=== PATIENT | male | born 1990 | race African-American/Black ===

== ENCOUNTER 2018-05-23 17:23 | Emergency (ER) | payer BC ==
[~2018-05-23] VITALS: Wt 96.0 kg
[2018-05-23 17:29] VITALS: BP 167/83
[2018-05-23] MEDS ORDERED: predniSONE 20 MG TAB PO STA (18:06)
[2018-05-23] MEDS ORDERED: IPRATROPIUM (NEB) 0.5 MG/2.5 ML AMP NEB STA (18:06)
[2018-05-23] MEDS ORDERED: ALBUTEROL 0.083% (NEB) 2.5 MG/3 ML AMP NEB STA (18:06)
--- NOTE | 2018-05-23 18:07 | ERD ---
ER Documentation Chief Complaint Chief Complaint BIB SELF, CC: SOB, WHEEZING, HX OF ASTHMA, X 3 DAYS HPI 27-year-old male with history of mild intermittent asthma, presents to the emergency department, complaining of 3 days with worsening of cough, associated with wheezing and shortness of breath on exertion. 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 He denies fevers, no chills, no chest pain. ROS All systems reviewed and are negative except as per history of present illness. Allergies Allergies: Coded Allergies: No Known Allergy (Unverified , 05/23/18) FmHx Family History: diabetes; No coronary disease Physical Exam Vitals Vital Signs Date Temp Pulse Resp B/P (MAP) Pulse Ox O2 O2 Flow FiO2 Time Delivery Rate 05/23/18 74 18 98 21 18:34 05/23/18 98.4 78 19 167/83 98 17:29 (111) Physical Exam Const: No acute distress Head: Atraumatic Eyes: Normal Conjunctiva ENT: Normal External Ears, Nose and Mouth. Neck: Full range of motion. No meningismus. Resp: Wheezing to auscultation bilaterally Cardio: Regular rate and rhythm, no murmurs Abd: Soft, non tender, non distended. Normal bowel sounds Skin: No petechiae or rashes Back: No midline or flank tenderness Ext: No cyanosis, or edema Neur: Awake and alert Psych: Normal Mood and Affect Results 24 hrs Current Medications Medications Dose Sig/Nancy Start Time Status Last (Trade) Ordered Route PRN Stop Time Admin Dose Reason Admin Albuterol 5 mg ONCE STAT 05/23/18 DC 05/23/18 (Proventil NEB 18:06 05/23/18 18:33 0.083% (Neb)) 18:10 Ipratropium 0.5 mg ONCE STAT 05/23/18 DC 05/23/18 [place] NEB 18:06 05/23/18 18:33 (Atrovent 18:10 0.02% (Neb)) Prednisone 60 mg ONCE STAT 05/23/18 DC 05/23/18 (Prednisone) PO 18:06 05/23/18 18:14 18:10 Procedures/MDM Differential diagnosis include but not limited to: Respiratory infection bacterial/viral/fungal. Asthma/COPD, pneumonitis, allergies, GERD. Less likely foreign body aspiration, cardiac related, aspiration pneumonia, malignancy. Physical examination and clinical presentation consistent most likely with acute asthma exacerbation with early superimposed bacterial infection. During the ED course the patient remained stable, received a nebulized treatment and steroids in the ED presenting overall improvement of the symptoms, no new complaints. Clinical impression discussed with the patient who agrees with management. The patient is stable to be treated outpatient and will be discharged home. Some side effects of prescribed medications (headache, rash, nausea, vomiting, diarrhea, drowsiness, habituation, bleeding, hypertension, interactions with other medications) were reviewed. The patient was instructed to follow up with the primary care provider in the next 48h. If symptoms persist, worsen or new symptoms develop, then patient should return to the ED immediately. Disclaimer: Inadvertent spelling and grammatical errors are likely due to EHR/dictation software use and do not reflect on the overall quality of patient care. Also, please note that the electronic time recorded on this note does not necessarily reflect the actual time of the patient encounter. Departure Diagnosis: Primary Impression: Asthma with acute exacerbation Condition: Stable HITESH KHAN MD May 23, 2018 18:07
[2018-05-23] MEDS ORDERED: IPRA3AMP29 INH (19:06)
[2018-05-23] MEDS ORDERED: NEBU1KIT3 MC (19:06)
[2018-05-23] MEDS ORDERED: ALBU8.5H8 INH (19:06)
[2018-05-23] MEDS ORDERED: PRED20TA PO (19:06)
[2018-05-23 19:13] VITALS: PULSE 100; RESP 20
== END 2018-05-23 19:14 | disposition home or self-care (01) ==
LOC: FTE 17:23
DX: J45.901 Unspecified asthma with (acute) exacerbation (principal)
CPT/HCPCS: 94664; J7512